=== PATIENT | female | born 1990 | race Caucasian/White ===

== ENCOUNTER 2016-04-20 09:10 | Emergency (ER) | payer MEDICAID ==
[~2016-04-20] VITALS: Ht 172.7 cm; Wt 86.4 kg
[~2016-04-20 09:10] MED LIST: AMOXICILLIN 50500 MG PO; DOXYCYCLINE 10100 MG PO; LORTAB 5/500 501 TAB PO; NO HOME MEDICATIONS; NORCO 325 MG-51 TAB PO; PRENATAL1 TA1 PO; SEPTRA DS 8001 TAB PO; TRI-SPRINTEC 281 TAB PO; VALTREX 50500 MG/TAB PO; ZOVIRAX400 MG PO
[2016-04-20 09:12] VITALS: TEMP 97.8
[2016-04-20 09:59] VITALS: BP 142/84; PULSE 92
== END 2016-04-20 10:00 | disposition home or self-care (01) ==
LOC: COL.ER 09:10
DX: S90.02XA Contusion of left ankle, initial encounter (principal); W20.8XXA Other cause of strike by thrown, projected or falling object, initial encounter

== ENCOUNTER 2016-07-29 17:38 | Emergency (ER) | payer SELFPAY ==
[~2016-07-29] VITALS: Ht 172.7 cm; Wt 84.5 kg
[2016-07-29 17:55] VITALS: TEMP 98.7
[2016-07-29 18:37] LABS: PH 6 (5-8); SQUAMOUS EPITHELIAL 0-2 /hpf; URINE APPEARANCE Clear; URINE BACTERIA None Seen /hpf; URINE BILIRUBIN Negative (NEGATIVE); URINE BLOOD Negative (NEGATIVE); URINE COLOR Yellow; URINE GLUCOSE Negative (NEGATIVE); URINE KETONE Negative (NEGATIVE); URINE RBC None Seen /hpf; URINE UROBILINOGEN Negative (NEGATIVE); URINE WBC 0-2 /hpf
[2016-07-29] MEDS ORDERED: PREDNISONE20 MG PO (19:54)
[2016-07-29] MEDS ORDERED: FLAGYL500 MG PO (19:54)
[2016-07-29 20:03] VITALS: BP 131/60; PULSE 82
[2016-07-29 22:34] LABS: CHLAMYDIA/TRACH by PCR Female NOT DETECTED; NEISSERIA GON by PCR Female NOT DETECTED
== END 2016-07-29 20:03 | disposition home or self-care (01) ==
LOC: COL.ER 17:38
PROVIDERS: Nurse Practitioner
DX: N76.0 Acute vaginitis (principal); B96.89 Other specified bacterial agents as the cause of diseases classified elsewhere; R21 Rash and other nonspecific skin eruption

== ENCOUNTER 2017-07-04 16:32 | Day surgery (SDC) | payer MEDICAID ==
[~2017-07-04] VITALS: Ht 172.7 cm; Wt 90.9 kg
[~2017-07-04 16:32] MED LIST changes: -PERCOCET 325 MG1 TA2 PO
[2017-07-04 17:02] LABS: BASO % 0.1 % (0.0-2.0); EOS # 0.1 (0.0-0.7); EOS % 1.9 % (0-4.0); GRAN # 4.2 (1.4-6.5); GRAN % 56.7 % (42.2-75.2); HEMATOCRIT 39.8 % (37.0-47.0); LYMPH # 2.5 (1.2-3.4); LYMPH % 33.3 % (20.0-51.0); MEAN CELL VOLUME 92 fl (80.0-100.0); MEAN CORPUSCULAR HEMOGLOBIN 32 pg (27.0-31.0); MEAN CORPUSCULAR HGB CONC 35 g/dl (33.0-37.0); MEAN PLATELET VOLUME 10.5 fl (7.4-10.4); MONO # 0.6 (0.1-0.6); MONO % 7.7 % (1.7-9.3); PLATELET COUNT 187 K/mm3 (130-400); RED BLOOD COUNT 4.35 M/mm3 (4.10-5.30); REDCELL DISTRIBUTION WIDTH-CV 12.4 % (11.5-14.5)
[2017-07-04 17:18] LABS: ALBUMIN 4.3 gm/dL (3.5-5.0); BILIRUBIN,TOTAL 0.4 mg/dL (0.0-1.0); CALCIUM 9.2 mg/dL (8.4-10.2); CREATININE, serum 0.73 mg/dL (0.52-1.25); POTASSIUM 3.6 mmol/L (3.4-5.0); TOTAL PROTEIN 7.5 gm/dL (6.4-8.2)
[2017-07-04] MEDS ORDERED: PERCOCET 325 MG1 TA2 PO (20:20)
[2017-07-04 20:45] VITALS: BP 113/71; PULSE 62; TEMP 98.5
[2017-07-04 21:00] VITALS: BP 117/58; PULSE 69; TEMP 98.4
[2017-07-04 21:15] VITALS: BP 112/60; PULSE 58; TEMP 98.7
[2017-07-04 21:30] VITALS: BP 113/60; PULSE 66
[2017-07-04 21:45] VITALS: BP 118/64; PULSE 68; TEMP 98.8
[2017-07-04 22:00] VITALS: BP 116/66; PULSE 68; TEMP 98.4
== END 2017-07-04 22:10 | disposition home or self-care (01) ==
LOC: COL.ER 16:32 → SDCO 18:20 → COL.ER 18:32 → OB 18:49 → SDCO 18:49
PROVIDERS: Emergency Medicine
DX: O00.101 Right tubal pregnancy without intrauterine pregnancy (principal); N93.9 Abnormal uterine and vaginal bleeding, unspecified; R19.09 Other intra-abdominal and pelvic swelling, mass and lump; J45.909 Unspecified asthma, uncomplicated; F17.210 Nicotine dependence, cigarettes, uncomplicated; K21.9 Gastro-esophageal reflux disease without esophagitis; Z88.3 Allergy status to other anti-infective agents
CPT/HCPCS: OP; J0690; J1885; J2250; J2270; J2405; J2550; J2704; J3010; J7030

== ENCOUNTER → 2017-07-04 | Outpatient (CLI) | payer MEDICAID ==
[~2017-07-04] MED LIST changes: +FLAGYL500 MG PO; +PERCOCET 325 MG1 TA2 PO; +PREDNISONE20 MG PO
== END ==
LOC: COL.RAD 14:17 → COL.LAB 14:17
DX: O20.9 Hemorrhage in early pregnancy, unspecified (principal); R93.8 Abnormal findings on diagnostic imaging of other specified body structures

== ENCOUNTER 2017-07-23 19:23 | Emergency (ER) | payer MEDICAID ==
[~2017-07-23 19:23] MED LIST changes: +PERCOCET 325 MG1 TA2 PO
[2017-07-23 19:25] VITALS: BP 135/95; TEMP 98
[2017-07-23] MEDS ORDERED: NORCO 325 MG-7.1 TAB PO (20:28)
[2017-07-23 20:45] VITALS: PULSE 77
== END 2017-07-23 20:47 | disposition home or self-care (01) ==
LOC: COL.ER 19:23
DX: S52.502A Unspecified fracture of the lower end of left radius, initial encounter for closed fracture (principal); F17.210 Nicotine dependence, cigarettes, uncomplicated; W01.0XXA Fall on same level from slipping, tripping and stumbling without subsequent striking against object, initial encounter; Y92.009 Unspecified place in unspecified non-institutional (private) residence as the place of occurrence of the external cause
CPT/HCPCS: J1170; Q4050

== ENCOUNTER 2018-04-16 13:14 | Emergency (ER) | payer MEDICAID ==
[~2018-04-16] VITALS: Ht 172.7 cm; Wt 99.1 kg
[~2018-04-16 13:14] MED LIST changes: +NORCO 325 MG-7.1 TAB PO
[2018-04-16 13:17] VITALS: BP 149/70; TEMP 98
[2018-04-16 13:52] LABS: COLLECTION METHOD CLEAN CATCH
[2018-04-16 13:55] LABS: BASO % 0.3 % (0.0-2.0); EOS # 0.1 (0.0-0.7); EOS % 2.2 % (0-4.0); GRAN # 4.1 (1.4-6.5); GRAN % 62.5 % (42.2-75.2); HEMATOCRIT 39.9 % (37.0-47.0); HEMOGLOBIN 13.8 g/dl (12.5-16.0); LYMPH # 1.8 (1.2-3.4); LYMPH % 27.6 % (20.0-51.0); MEAN CELL VOLUME 91 fl (80.0-100.0); MEAN CORPUSCULAR HEMOGLOBIN 31 pg (27.0-31.0); MEAN CORPUSCULAR HGB CONC 35 g/dl (33.0-37.0); MEAN PLATELET VOLUME 9.7 fl (7.4-10.4); MONO # 0.5 (0.1-0.6); MONO % 7.1 % (1.7-9.3); PLATELET COUNT 216 K/mm3 (130-400); RED BLOOD COUNT 4.39 M/mm3 (4.10-5.30)
[2018-04-16 14:00] LABS: PH 6 (5-8); SQUAMOUS EPITHELIAL 0-2 /hpf; URINE APPEARANCE Clear; URINE BACTERIA None Seen /hpf; URINE BILIRUBIN Negative (NEGATIVE); URINE BLOOD Negative (NEGATIVE); URINE COLOR Yellow; URINE GLUCOSE Negative (NEGATIVE); URINE KETONE Negative (NEGATIVE); URINE LEUKOCYTE ESTERASE Negative (NEGATIVE); URINE NITRATE Negative (NEGATIVE); URINE PROTEIN(semi-quant) Negative (NEGATIVE); URINE RBC None Seen /hpf; URINE UROBILINOGEN Negative (NEGATIVE)
[2018-04-16 15:40] VITALS: PULSE 79
== END 2018-04-16 15:42 | disposition home or self-care (01) ==
LOC: COL.ER 13:14
PROVIDERS: Family Medicine
DX: O20.0 Threatened abortion (principal)

== ENCOUNTER → 2018-04-26 | Outpatient (CLI) | payer MEDICAID ==
[2018-04-26 10:28] LABS: ALBUMIN 4.1 gm/dL (3.5-5.0); BILIRUBIN,TOTAL 0.6 mg/dL (0.0-1.0); CREATININE, serum 0.72 mg/dL (0.52-1.25)
== END ==
LOC: COL.LAB 10:06
PROVIDERS: Obstetrics & Gynecology
DX: O20.0 Threatened abortion (principal); Z3A.00 Weeks of gestation of pregnancy not specified

== ENCOUNTER 2019-11-14 13:26 | Emergency (ER) | payer MEDICAID ==
[~2019-11-14] VITALS: Ht 172.7 cm; Wt 97.7 kg
[~2019-11-14 13:26] MED LIST changes: +CEPHALEXIN500 M1 PO
[2019-11-14 13:33] VITALS: BP 127/82; TEMP 98.2
[2019-11-14] MEDS ORDERED: PREDNISONE20 MG PO (14:06)
[2019-11-14] MEDS ORDERED: ATARAX 10MG10 MG/TAB PO (14:06)
[2019-11-14 14:15] VITALS: PULSE 68
== END 2019-11-14 14:17 | disposition home or self-care (01) ==
LOC: COL.ER 13:26
DX: S70.362A Insect bite (nonvenomous), left thigh, initial encounter (principal); F17.210 Nicotine dependence, cigarettes, uncomplicated; W57.XXXA Bitten or stung by nonvenomous insect and other nonvenomous arthropods, initial encounter

== ENCOUNTER → 2019-12-12 | Emergency (ER) | payer MEDICAID ==
[~2019-12-12] VITALS: Ht 175.3 cm; Wt 100.0 kg
[~2019-12-12] MED LIST changes: +ATARAX 10MG10 MG/TAB PO
[2019-12-12 11:29] VITALS: BP 120/77; PULSE 93; TEMP 97.8
[2019-12-12 12:07] LABS: STREP SCREEN NEGATIVE
== END ==
LOC: COL.ER 10:49
PROVIDERS: Emergency Medicine
DX: J02.9 Acute pharyngitis, unspecified (principal); Z53.29 Procedure and treatment not carried out because of patient's decision for other reasons

== ENCOUNTER 2020-05-06 13:47 | Emergency (ER) | payer MEDICAID ==
[~2020-05-06] VITALS: Ht 172.7 cm; Wt 97.7 kg
[2020-05-06 13:54] VITALS: TEMP 97.7
[2020-05-06 15:40] VITALS: BP 126/70; PULSE 73
== END 2020-05-06 15:40 | disposition home or self-care (01) ==
LOC: COL.ER 13:47
DX: J45.909 Unspecified asthma, uncomplicated (principal); L72.3 Sebaceous cyst; Z20.822 Contact with and (suspected) exposure to COVID-19; Z88.6 Allergy status to analgesic agent; Z79.52 Long term (current) use of systemic steroids

== ENCOUNTER 2020-05-10 14:38 | Emergency (ER) | payer MEDICAID ==
[~2020-05-10] VITALS: Ht 172.7 cm; Wt 97.7 kg
[2020-05-10 14:47] VITALS: TEMP 98
[2020-05-10] MEDS ORDERED: NORCO 325 MG-51 TAB PO (15:32)
[2020-05-10] MEDS ORDERED: BACTRIM DS 8001 TAB PO (15:32)
[2020-05-10 17:10] VITALS: BP 121/75; PULSE 80
== END 2020-05-10 15:50 | disposition home or self-care (01) ==
LOC: COL.ER 14:38
DX: L03.317 Cellulitis of buttock (principal); J45.909 Unspecified asthma, uncomplicated; Z88.6 Allergy status to analgesic agent; Z79.52 Long term (current) use of systemic steroids

== ENCOUNTER 2020-09-23 12:53 | Emergency (ER) | payer MEDICAID ==
[~2020-09-23] VITALS: Ht 172.7 cm; Wt 96.4 kg
[~2020-09-23 12:53] MED LIST changes: +BACTRIM DS 8001 TAB PO
[2020-09-23 13:10] VITALS: TEMP 97.8
[2020-09-23] MEDS ORDERED: NORCO 325 MG-51 TAB PO (14:42)
[2020-09-23 15:14] VITALS: BP 119/76; PULSE 78
== END 2020-09-23 15:14 | disposition home or self-care (01) ==
LOC: COL.ER 12:53
DX: S43.51XA Sprain of right acromioclavicular joint, initial encounter (principal); S80.02XA Contusion of left knee, initial encounter; Z88.6 Allergy status to analgesic agent; Z87.891 Personal history of nicotine dependence; V86.36XA Unspecified occupant of dirt bike or motor/cross bike injured in traffic accident, initial encounter
CPT/HCPCS: J3010

== ENCOUNTER 2021-04-24 19:05 | Emergency (ER) | payer MEDICAID ==
[~2021-04-24] VITALS: Ht 172.7 cm; Wt 97.7 kg
[2021-04-24] MEDS ORDERED: ROXICODONE 55 MG/TAB PO (21:28)
[2021-04-24 22:07] VITALS: BP 128/68; PULSE 79; TEMP 98.1
== END 2021-04-24 22:16 | disposition home or self-care (01) ==
LOC: COL.ER 19:05
DX: S52.121A Displaced fracture of head of right radius, initial encounter for closed fracture (principal); V00.831A Fall from motorized mobility scooter, initial encounter

== ENCOUNTER 2021-12-29 18:12 | Emergency (ER) | payer MEDICAID ==
[~2021-12-29] VITALS: Ht 172.7 cm; Wt 104.5 kg
[~2021-12-29 18:12] MED LIST changes: +ROXICODONE 55 MG/TAB PO
[2021-12-29 18:16] VITALS: TEMP 98.2
[2021-12-29] MEDS ORDERED: BACTRIM DS 8001 TAB PO (18:43)
[2021-12-29 19:04] VITALS: BP 122/78; PULSE 76
== END 2021-12-29 19:04 | disposition home or self-care (01) ==
LOC: COL.ER 18:12
DX: A60.00 Herpesviral infection of urogenital system, unspecified (principal); F17.210 Nicotine dependence, cigarettes, uncomplicated; Z28.310 Unvaccinated for COVID-19; Z88.6 Allergy status to analgesic agent

== ENCOUNTER 2022-07-08 22:44 | Emergency (ER) | payer MEDICAID ==
[~2022-07-08] VITALS: Ht 175.3 cm; Wt 104.5 kg
[~2022-07-08 22:44] MED LIST changes: +LAMICTAL 100MG100 MG PO; +VALTREX1 GM PO
[2022-07-08 22:53] VITALS: BP 151/91; TEMP 98.2
[2022-07-08] MEDS ORDERED: CEPHALEXIN500 M1 PO (23:18)
[2022-07-08 23:26] VITALS: PULSE 91
== END 2022-07-08 23:27 | disposition home or self-care (01) ==
LOC: COL.ER 22:44
DX: T81.40XA Infection following a procedure, unspecified, initial encounter (principal); L03.031 Cellulitis of right toe; Z28.310 Unvaccinated for COVID-19